=== PATIENT | female | born 2000 | race Two or more races ===

== ENCOUNTER 2024-12-09 14:09 | Emergency (ER) | payer MEDICAID, SELFPAY ==
[2024-12-09 14:11] VITALS: BMI 31.1
[2024-12-09 14:22] VITALS: BP 132/81; PULSE 73; RESP 20; TEMP 37.1; O2SAT 99
[2024-12-09] MEDS: DEXAMETHASONE SOD PHOS INJ 10 MG/ML VIAL PO (14:58)
--- NOTE | 2024-12-09 15:03 | PD.EDSKIN ---
ED Skin Abcess FB-RME/HPI General Chief complaint: Extremity Problem,Nontraumatic Stated complaint: POSSIBLE INFECTION TO BLE Time Seen by Provider: 12/09/24 14:16 Source: patient Arrival date/time: 12/09/24 14:09 24-year-old female with no known medical history presents to the emergency room with a chief complaint of a rash to her bilateral lower extremities, abdomen, back x 3 days. Patient states she has had this rash on and off for the last year but progressively gotten worse in the last 3 days. Mode of arrival: ambulatory Limitations: no limitations Related Data Previous Rx's ?Medication ?Instructions ?Recorded famotidine 20 mg tablet (Pepcid) 20 mg PO QDAY #20 tabs 12/09/24 prednisone 20 mg tablet See Taper PO QDAY #18 tabs 12/09/24 Allergies Allergy/AdvReac Type Severity Reaction Status Date / Time No Known Allergies Allergy Verified 12/09/24 14:11 Review of Systems Review of Systems Systems Reviewed: All systems reviewed, normal except as documented Constitutional Constitutional: Reports system reviewed and no additional complaints, except as documented, Denies fatigue, Denies fever(s), Denies headache(s) and Denies weakness Eyes Eyes: Reports system reviewed and no additional complaints, except as documented, Denies blurry vision and Denies change in vision ENT Ears, Nose, Mouth, and Throat: Reports system reviewed and no additional complaints, except as documented, Denies otalgia, Denies headache(s), Denies nasal congestion, Denies throat swelling and Denies vertigo Cardiovascular Cardiovascular: Reports system reviewed and no additional complaints, except as documented, Denies chest pain, Denies dyspnea and Denies dyspnea on exertion Respiratory Respiratory: Reports system reviewed and no additional complaints, except as documented, Denies chest congestion, Denies cough, Denies dyspnea, Denies dyspnea on exertion and Denies wheezing Gastrointestinal Gastrointestinal: Reports system reviewed and no additional complaints, except as documented, Denies abdominal pain, Denies cramping, Denies nausea and Denies vomiting Genitourinary Genitourinary: Reports system reviewed and no additional complaints, except as documented Musculoskeletal Musculoskeletal: Reports system reviewed and no additional complaints, except as documented and Denies back pain Integumentary/Breasts Skin/Breast: Reports system reviewed and no additional complaints, except as documented, Reports dry skin, Reports erythema, Reports pruritus, Reports rash, Reports skin pain, Reports skin swelling and Denies wounds Neurologic Neurologic: Reports system reviewed and no additional complaints, except as documented, Denies confusion, Denies headache(s), Denies lack of coordination, Denies vertigo and Denies weakness Psychiatric Psychiatric: Reports system reviewed and no additional complaints, except as documented, Denies anxiety, Denies confusion, Denies depression, Denies paranoia, Denies suicidal ideation and Denies tactile hallucinations Endocrine Endocrine: Reports system reviewed and no additional complaints, except as documented and Denies fatigue Hematologic/Lymphatic Hematologic/Lymphatic: Reports system reviewed and no additional complaints, except as documented and Denies lymphadenopathy Allergic/Immunologic Allergic/Immunologic: Reports system reviewed and no additional complaints, except as documented, Denies throat swelling, Denies urticaria and Denies wheezing Past Medical History Social History SMOKING STATUS: Never smoker ED Exam General Limitations: Present no limitations General appearance: Present alert and in no apparent distress Head Head exam: Present atraumatic Eye Eye exam: Present normal appearance, PERRL and EOMI ENT ENT exam: Present normal exam, normal oropharynx and mucous membranes moist Neck Neck exam: Present normal inspection, full ROM and trachea midline Chest Chest inspection: Present normal inspection and symmetric chest wall rise Respiratory Respiratory exam: Present normal lung sounds bilaterally Cardiovascular Cardiovascular exam: Present regular rate, normal rhythm and normal heart sounds Abdominal Exam Abdominal exam: Present soft and normal bowel sounds Extremities Exam Extremities exam: Present normal inspection and full ROM Back Exam Back exam: Present normal inspection and full ROM Neurological Exam Neurological exam: Present alert, oriented X3 and CN II-XII intact Psychiatric Psychiatric exam: Present normal affect and normal mood Skin Skin exam: Present warm, dry, intact, normal color and rash Expanded Skin Exam Type of lesion: Present rash Distribution: Present generalized, chest, abdomen, LLE and RLE Description: Present tenderness, erythematous, swelling and macular Course Quality Measures none Orders Category Date Time Status Dexamethasone Inj [Decadron Inj] Med 12/09/24 14:46 Discontinued 10 mg PO X1 ONE Vital Signs Vital signs: Vital Signs Temperature 98.7 F 12/09/24 14:22 Pulse Rate 73 12/09/24 14:22 Respiratory Rate 20 12/09/24 14:22 Blood Pressure 132/81 H 12/09/24 14:22 Pulse Oximetry (%) 99 12/09/24 14:22 Oxygen Delivery Method Room Air 12/09/24 14:22 O2 saturation 99% within normal limits Skin / Abscess / Foreign Body MDM Narrative MDM Narrative:: 24-year-old female with no known medical history presents to the emergency room with a chief complaint of a rash to her bilateral lower extremities, abdomen, back x 3 days. Patient states she has had this rash on and off for the last year but progressively gotten worse in the last 3 days. Patient is hemodynamically stable and in no apparent distress Physical examination shows a rash to her bilateral lower extremities that extends from her pelvis all the way down to her calves. This rash also extends into her abdomen back and in her arms. Patient states she has been dealing with this rash for over a year but it seems she has had a flareup to this rash. Patient is being seen by her primary care provider and a referral to a hot plate [employer] operator has already been placed for the patient and she is just awaiting to be called to see them. Per patient she is also getting worked up for any autoimmune diseases. This rash appears to be a mix between urticaria and contact dermatitis. Steroids were given to the patient and she was discharged with oral steroids. My attending physician Dr. Hernandez was consulted and he came to the room to evaluate the patient. His recommendations were to give her steroids and discharged. Patient was discharged and educated to follow-up with primary care provider in the next 24 to 48 hours and return to the emergency room for any evidence of worsening signs or symptoms Patient data External records reviewed:: [facility] previous records Clinical information provided by:: patient Social determinants that could affect healthcare access:: none Patient has the following chronic illnesses:: No chronic illness How is presenting disease/condition affected by chronic disease/condition?: no chronic disease Evaluation data The following diagnostics were reviewed and interpreted by me:: lab results and radiology exam(s) Lab and/or radiology exams considered but not ordered:: Labs and radiology exams considered Interpretation Summary: N/A Medications / Prescriptions Medications or Prescriptions considered but not ordered:: Medication given Medication administrations:: Medication Administration History Discontinued Medications Dexamethasone Sodium Phosphate (Dexamethasone Sod Phos Inj 10 Mg/Ml Vial) 10 mg PO X1 ONE Stop: 12/09/24 14:47 Last Admin: 12/09/24 14:58 Dose: 10 mg Documented By: Medication given Consultations Consultation(s) initiated? (list below): No Diagnosis Skin/Abscess Differential Diagnosis: urticaria, cellulitis and contact dermatitis Most likely diagnosis given after review of the tests above:: Contact dermatitis Admission Indicated Admission indicated?: not indicated Admission Request Was there a request for admission?: No Disposition Plan Disposition Plan: Discharge Discharge Attestation Discharge Attestation: The patient and all family members were given an opportunity to ask questions and understood the discharge instructions. Discharge instructions specifically effects, indications for sooner follow up or return to the emergency department, and the expected course of current diagnosis. Patient condition: Stable Discharge Plan Plan Patient Disposition: HOME (Self Care) Discharge Disposition comment: Stable Prescriptions/Referrals Prescriptions/Med Rec: New prednisone 20 mg tablet See Taper PO QDAY Qty: 18 0RF Taper: Prednisone Taper 20 mg THREE TIMES A DAY for 3 Days and 0 Hour 20 mg TWICE A DAY for 3 Days and 0 Hour 20 mg DAILY for 3 Days and 0 Hour famotidine [Pepcid] 20 mg tablet 20 mg PO QDAY Qty: 20 0RF Problem List Clinical Impression: Urticaria, Contact dermatitis Patient/Caregiver Discharge Instructions Education Materials: Understanding Contact Dermatitis, ED Contact Dermatitis, ED Hives (Adult) Additional Instructions: Please follow-up with your primary care provider in the next 24 to 48 hours A referral to hot plate [employer] operator is indicated please follow-up with your hot plate ply[employer] press operator for further management For any evidence of worsening signs or symptoms return to the emergency room immediately Print Language: Syriac Stand Alone Forms: Lizbeth Award Info., Patient Portal Info Letter PA/WATCH CASER Supervising Physician PA/WATCH CASER Supervising Physician: Dr. Hernandez
== END 2024-12-09 15:10 | disposition home or self-care (01) ==
LOC: SERX 15:14
PROVIDERS: Emergency Provider Nurse Practitioner Family; PCP Nurse Practitioner Family
DX: L50.9 Urticaria, unspecified (principal); L25.9 Unspecified contact dermatitis, unspecified cause
CPT/HCPCS: 99282; J1100